=== PATIENT | female | born 1980 | race Caucasian/White ===

== ENCOUNTER 2021-02-06 09:12 | Outpatient (REF) | payer OTHER, SELFPAY ==
[2021-02-06 10:32] LABS: Magnesium 2.1 mg/dL (1.6-2.6)
[2021-02-06 10:54] LABS: Vitamin D 25-OH Total 31.9 ng/mL (>30)
[2021-02-08 11:47] LABS: Absolute CD3 Count 1341 cells/uL (840-3060); Absolute CD4 Count 726 cells/uL (490-1740); Absolute CD8 Count 597 cells/uL (180-1170); Absolute Lymphocytes 1837 cells/uL (850-3900); CD4 CD8 Ratio 1.22 (0.86-5.00); Percent CD3 Cells 73 % (57-85); Percent CD4 Cells 40 % (30-61); Percent CD8 Cells 33 % (12-42)
[2021-02-08 13:37] LABS: Immunoglobulin A 102 mg/dL (47-310); Immunoglobulin M 112 mg/dL (50-300)
[2021-02-09 00:11] LABS: Immunoglobulin G Subclass 1 480 mg/dL (382-929); Immunoglobulin G Subclass 2 469 mg/dL (241-700); Immunoglobulin G Subclass 3 67 mg/dL (22-178); Immunoglobulin G Subclass 4 52.8 mg/dL (4-86); Immunoglobulin G Total 1190 mg/dL (600-1640)
[2021-02-09 13:16] LABS: Cytomegalovirus Ab IgM <30.00 AU/mL
[2021-02-12 14:22] LABS: Immunoglobulin E 80 kU/L (<OR=114)
[2021-02-12 16:16] LABS: Chlamydia Pneumoniae IgA <1:16 titer (<1:16); Chlamydia Pneumoniae IgG <1:64 titer (<1:64); Chlamydia Pneumoniae IgM <1:10 titer (<1:10); Chlamydia Psittaci IgA <1:16 titer (<1:16); Chlamydia Psittaci IgG <1:64 titer (<1:64); Chlamydia Psittaci IgM <1:10 titer (<1:10); Chlamydia Trachomatis IgA <1:16 titer (<1:16); Chlamydia Trachomatis IgG <1:64 titer (<1:64); Chlamydia Trachomatis IgM <1:10 titer (<1:10)
[2021-02-12 18:32] LABS: Mycoplasma Pneumoniae - IgG 1.21 (<=0.90); Mycoplasma Pneumoniae - IgM 65 U/mL (<770)
== END 2021-02-06 09:13 | disposition home or self-care (01) ==
LOC: HO.LAB 09:12
PROVIDERS: Visit Provider Allergy & Immunology Allergy
DX: R53.83 Other fatigue (principal); E55.9 Vitamin D deficiency, unspecified
CPT/HCPCS: 36415; 82306; 82784; 82785; 83735; 86357; 86359; 86360; 86631; 86632; 86644; 86645; 86738